=== PATIENT | male | born 1950 | race Caucasian/White ===

== ENCOUNTER 2022-07-15 10:43 | Emergency (ER) | payer MEDICARE, OTHER ==
[2022-07-15 12:01] LABS: Basophils # (A) 0.1 k/uL (0-0.2); Basophils % (A) 1 %; Eosinophils # (A) 0.6 k/uL (0-0.7); Eosinophils % (A) 5 %; HCT 37.5 % (39.0-53.0); HGB 12.4 gm/dL (13.0-17.5); Lymphocytes # (A) 0.9 k/uL (1.0-4.8); Lymphocytes % (A) 7 %; MCH 29.8 pg (25.0-35.0); MCV 90.1 fL (80.0-100.0); Mean Platelet Volume 7.6; Monocytes # (A) 0.5 k/uL (0-1.0); Monocytes % (A) 4 %; Neutrophils % (A) 81 %; Platelet Count 325 k/uL (150-450); RBC 4.16 m/uL (4.30-5.90); RDW 13.2 % (11.5-15.5); WBC 12.3 k/uL (3.8-10.6)
[2022-07-15 12:19] LABS: ALT 25 U/L (4-49); AST 40 U/L (17-59); African American GFR (CKD) >90 (>60 ml/min/1.73 sqM); Albumin 4.3 g/dL (3.5-5.0); Alkaline Phosphatase 110 U/L (38-126); Anion Gap 9 mmol/L; Blood Urea Nitrogen 24 mg/dL (9-20); Calcium 9.1 mg/dL (8.4-10.2); Carbon Dioxide 25 mmol/L (22-30); Chloride 105 mmol/L (98-107); Glucose 118 mg/dL (74-99); Non-African American GFR(CKD) 83 (>60 ml/min/1.73 sqM); Potassium 4.3 mmol/L (3.5-5.1); Sodium 139 mmol/L (137-145); Total Bilirubin 0.7 mg/dL (0.2-1.3); Total Protein 8.6 g/dL (6.3-8.2)
--- NOTE | 2022-07-15 12:25 | ED ---
General Adult HPI - General Source: patient, EMS, RN notes reviewed Mode of arrival: EMS Limitations: no limitations <Elfego Vera - Last Filed: 07/15/22 12:24> <Zechariah Cage - Last Filed: 07/16/22 02:56> - General Chief complaint: Psychiatric Symptoms Stated complaint: Psych Eval Time Seen by Provider: 07/15/22 11:01 - History of Present Illness Initial comments: 71-year-old male presents emergency arm and with police for a psychiatric evaluation. Patient was found out wandering and looked very disheveled, unkempt. Patient states he does live at home by himself he states that he was just wandering and was lost. Patient is awake alert and orientated. Patient denies physical complaints states months ago he had some dysuria but that resolved. States takes multivitamin medications denies any other prescription medications. (Elfego Vera) Review of Systems ROS Other: All systems not noted in ROS Statement are negative. <Elfego Vera - Last Filed: 07/15/22 12:24> ROS Other: All systems not noted in ROS Statement are negative. <Zechariah Cage - Last Filed: 07/16/22 02:56> ROS Statement: Those systems with pertinent positive or pertinent negative responses have been documented in the HPI. Past Medical History Past Medical History: Unable to Obtain History of Any Multi-Drug Resistant Organisms: Unobtainable Past Surgical History: Unable to Obtain Past Psychological History: Unable to Obtain Smoking Status: Unknown if ever smoked Past Alcohol Use History: Unable to Obtain Past Drug Use History: Unable to Obtain <Elfego Vera - Last Filed: 07/15/22 12:24> General Exam Limitations: no limitations General appearance: alert, in no apparent distress Head exam: Present: atraumatic, normocephalic, normal inspection Eye exam: Present: normal appearance, PERRL, EOMI. Absent: scleral icterus, conjunctival injection, periorbital swelling ENT exam: Present: normal exam, mucous membranes moist Neck exam: Present: normal inspection, full ROM. Absent: tenderness, meningismus, lymphadenopathy Respiratory exam: Present: normal lung sounds bilaterally. Absent: respiratory distress, wheezes, rales, rhonchi, stridor Cardiovascular Exam: Present: regular rate, normal rhythm, normal heart sounds. Absent: systolic murmur, diastolic murmur, rubs, gallop, clicks GI/Abdominal exam: Present: soft, normal bowel sounds. Absent: distended, tenderness, guarding, rebound, rigid Neurological exam: Present: alert, oriented X3 <Elfego Vera - Last Filed: 07/15/22 12:24> General appearance: alert, in no apparent distress Head exam: Present: atraumatic, normocephalic, normal inspection Eye exam: Present: normal appearance, PERRL, EOMI. Absent: scleral icterus, conjunctival injection, periorbital swelling ENT exam: Present: normal exam, mucous membranes moist Neck exam: Present: normal inspection. Absent: tenderness, meningismus, lymphadenopathy Respiratory exam: Present: normal lung sounds bilaterally. Absent: respiratory distress, wheezes, rales, rhonchi, stridor Cardiovascular Exam: Present: regular rate, normal rhythm, normal heart sounds. Absent: systolic murmur, diastolic murmur, rubs, gallop, clicks GI/Abdominal exam: Present: soft, normal bowel sounds. Absent: distended, tenderness, guarding, rebound, rigid Extremities exam: Present: normal inspection, full ROM, normal capillary refill. Absent: tenderness, pedal edema, joint swelling, calf tenderness Back exam: Present: normal inspection Neurological exam: Present: alert, oriented X3, CN II-XII intact Psychiatric exam: Present: normal affect, normal mood Skin exam: Present: warm, dry, intact, normal color. Absent: rash <Zechariah Cage - Last Filed: 07/16/22 02:56> Course <Zechariah Cage - Last Filed: 07/16/22 02:56> Vital Signs 07/15/22 11:26 Temperature 97.6 F Pulse Rate 83 Respiratory 18 Rate Blood Pressure 150/92 O2 Sat by Pulse 100 Oximetry - Reevaluation(s) Reevaluation #1: 07/16/22 02:00 Medical record is reviewed Medical clear for psychiatric evaluation (Zechariah Cage) Medical Decision Making - Lab Data Result diagrams: 07/15/22 11:42 07/15/22 11:42 <Elfego Vera - Last Filed: 07/15/22 12:24> - Lab Data Result diagrams: 07/15/22 11:42 07/15/22 11:42 <Zechariah Cage - Last Filed: 07/16/22 02:56> - Medical Decision Making 71 male to be admitted for psychiatric evaluation. Seen and evaluated here in the ER no organic cause found for symptoms (Zechariah Cage) - Lab Data Lab Results 07/15/22 07/15/22 07/15/22 Range/Units 11:42 11:42 11:42 WBC 12.3 H (3.8-10.6) k/uL RBC 4.16 L (4.30-5.90) m/uL Hgb 12.4 L (13.0-17.5) gm/dL Hct 37.5 L (39.0-53.0) % MCV 90.1 (80.0-100.0) fL MCH 29.8 (25.0-35.0) pg MCHC 33.0 (31.0-37.0) g/dL RDW 13.2 (11.5-15.5) % Plt Count 325 (150-450) k/uL MPV 7.6 Neutrophils % 81 % Lymphocytes % 7 % Monocytes % 4 % Eosinophils % 5 % Basophils % 1 % Neutrophils # 10.0 H (1.3-7.7) k/uL Lymphocytes # 0.9 L (1.0-4.8) k/uL Monocytes # 0.5 (0-1.0) k/uL Eosinophils # 0.6 (0-0.7) k/uL Basophils # 0.1 (0-0.2) k/uL Sodium 139 (137-145) mmol/L Potassium 4.3 (3.5-5.1) mmol/L Chloride 105 (98-107) mmol/L Carbon Dioxide 25 (22-30) mmol/L Anion Gap 9 mmol/L BUN 24 H (9-20) mg/dL Creatinine 0.93 (0.66-1.25) mg/dL Est GFR (CKD-EPI)AfAm >90 (>60 ml/min/1.73 sqM) Est GFR (CKD-EPI)NonAf 83 (>60 ml/min/1.73 sqM) Glucose 118 H (74-99) mg/dL Calcium 9.1 (8.4-10.2) mg/dL Total Bilirubin 0.7 (0.2-1.3) mg/dL AST 40 (17-59) U/L ALT 25 (4-49) U/L Alkaline Phosphatase 110 (38-126) U/L Total Protein 8.6 H (6.3-8.2) g/dL Albumin 4.3 (3.5-5.0) g/dL Urine Color Urine Appearance (Clear) Urine pH (5.0-8.0) Ur Specific [place] (1.001-1.035) Urine Protein (Negative) Urine Glucose (UA) (Negative) Urine Ketones (Negative) Urine Blood (Negative) Urine Nitrite (Negative) Urine Bilirubin (Negative) Urine Urobilinogen (<2.0) mg/dL Ur Leukocyte Esterase (Negative) Urine RBC (0-5) /hpf Urine WBC (0-5) /hpf Urine Mucus (None) /hpf Urine Opiates Screen Not Detected (NotDetected) Ur Oxycodone Screen Not Detected (NotDetected) Urine Methadone Screen Not Detected (NotDetected) Ur Propoxyphene Screen Not Detected (NotDetected) Ur Barbiturates Screen Not Detected (NotDetected) U Tricyclic Antidepress Not Detected (NotDetected) Ur Phencyclidine Scrn Not Detected (NotDetected) Ur Amphetamines Screen Not Detected (NotDetected) U Methamphetamines Scrn Not Detected (NotDetected) U Benzodiazepines Scrn Detected H (NotDetected) Urine Cocaine Screen Not Detected (NotDetected) U Marijuana (THC) Screen Not Detected (NotDetected) Coronavirus (PCR) (Not Detectd) 07/15/22 07/15/22 Range/Units 11:42 12:51 WBC (3.8-10.6) k/uL RBC (4.30-5.90) m/uL Hgb (13.0-17.5) gm/dL Hct (39.0-53.0) % MCV (80.0-100.0) fL MCH (25.0-35.0) pg MCHC (31.0-37.0) g/dL RDW (11.5-15.5) % Plt Count (150-450) k/uL MPV Neutrophils % % Lymphocytes % % Monocytes % % Eosinophils % % Basophils % % Neutrophils # (1.3-7.7) k/uL Lymphocytes # (1.0-4.8) k/uL Monocytes # (0-1.0) k/uL Eosinophils # (0-0.7) k/uL Basophils # (0-0.2) k/uL Sodium (137-145) mmol/L Potassium (3.5-5.1) mmol/L Chloride (98-107) mmol/L Carbon Dioxide (22-30) mmol/L Anion Gap mmol/L BUN (9-20) mg/dL Creatinine (0.66-1.25) mg/dL Est GFR (CKD-EPI)AfAm (>60 ml/min/1.73 sqM) Est GFR (CKD-EPI)NonAf (>60 ml/min/1.73 sqM) Glucose (74-99) mg/dL Calcium (8.4-10.2) mg/dL Total Bilirubin (0.2-1.3) mg/dL AST (17-59) U/L ALT (4-49) U/L Alkaline Phosphatase (38-126) U/L Total Protein (6.3-8.2) g/dL Albumin (3.5-5.0) g/dL Urine Color Yellow Urine Appearance Clear (Clear) Urine pH 5.5 (5.0-8.0) Ur Specific [place] 1.031 (1.001-1.035) Urine Protein 1+ H (Negative) Urine Glucose (UA) Negative (Negative) Urine Ketones Negative (Negative) Urine Blood Small H (Negative) Urine Nitrite Negative (Negative) Urine Bilirubin Negative (Negative) Urine Urobilinogen 2.0 (<2.0) mg/dL Ur Leukocyte Esterase Negative (Negative) Urine RBC 6 H (0-5) /hpf Urine WBC 1 (0-5) /hpf Urine Mucus Few H (None) /hpf Urine Opiates Screen (NotDetected) Ur Oxycodone Screen (NotDetected) Urine Methadone Screen (NotDetected) Ur Propoxyphene Screen (NotDetected) Ur Barbiturates Screen (NotDetected) U Tricyclic Antidepress (NotDetected) Ur Phencyclidine Scrn (NotDetected) Ur Amphetamines Screen (NotDetected) U Methamphetamines Scrn (NotDetected) U Benzodiazepines Scrn (NotDetected) Urine Cocaine Screen (NotDetected) U Marijuana (THC) Screen (NotDetected) Coronavirus (PCR) Not Detected (Not Detectd) Disposition <Elfego Vera - Last Filed: 07/15/22 12:24> Is patient prescribed a controlled substance at d/c from ED?: No <Zechariah Cage - Last Filed: 07/16/22 02:56> Clinical Impression: Acute psychosis Disposition: TRANSFER TO PSYCH HOSP/UNIT Condition: Fair Referrals: None,Stated [REFERRING] - 1-2 days
[2022-07-15 13:05] VITALS: RESP 18
[2022-07-15 13:52] LABS: Appearance,Urine Clear (Clear); Bilirubin,Urine Negative (Negative); Blood,Urine Small (Negative); Color,Urine Yellow; Glucose,Urine (UA) Negative (Negative); Ketones,Urine Negative (Negative); Leukocyte Esterase,Urine Negative (Negative); Mucus,Urine Few /hpf; Nitrite,Urine Negative (Negative); PH, Urine 5.5 (5.0-8.0); Protein,Urine 1+ (Negative); RBC,Urine 6 /hpf (0-5); Specific Gravity,Urine 1.031 (1.001-1.035); WBC,Urine 1 /hpf (0-5)
[2022-07-15 13:58] LABS: Amphetamine Screen,Urine Not Detected (NotDetected); Barbiturate Screen,Urine Not Detected (NotDetected); Benzodiazepines Screen,Urine Detected (NotDetected); Cocaine Screen,Urine Not Detected (NotDetected); Methadone Screen, Urine Not Detected (NotDetected); Opiate Screen,Urine Not Detected (NotDetected); Oxycodone Screen, Urine Not Detected (NotDetected); Phencyclidine Screen,Urine Not Detected (NotDetected); Tricyclic Antidepressant,Urine Not Detected (NotDetected); Urn Cannabinoid Scrn Not Detected (NotDetected)
[2022-07-15] MEDS ORDERED: DOCUSATE 100 MG CAP PO PRN (19:10)
[2022-07-16 09:54] VITALS: BP 154/87; PULSE 82; TEMP 98
== END 2022-07-16 09:56 ==
LOC: EC 10:43
DX: F29 Unspecified psychosis not due to a substance or known physiological condition (principal); Z20.822 Contact with and (suspected) exposure to COVID-19
CPT/HCPCS: 36415; 80053; 80306; 81001; 82075; 85025; 87635; 99285

== ENCOUNTER 2022-11-13 19:11 | Inpatient (IN) | payer MEDICARE, OTHER ==
--- NOTE | 2022-11-13 19:41 | ED ---
Psych HPI - General Source: patient, police, RN notes reviewed, old records reviewed <Ruben Vargas - Last Filed: 11/13/22 20:50> <Iker Landeros - Last Filed: 11/14/22 05:32> - General Stated Complaint: Mental Health Time Seen by Provider: 11/13/22 19:13 - History of Present Illness Initial Comments: 72-year-old male with a history of psychiatric disorder likely also dementia who does live alone in an apartment who was seen by police on a well person check found to be very disheveled confused as to where he was here. He was lost in his own apartment a kitchen he was very disheveled did demonstrate body odor and the odor of urine on his clothing. He appeared to demonstrate poor hygiene. He admitted he had not been eating or drinking very well. 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 He has not been taking his medication for at least a month. No reports of any trauma he denies any fevers chills or sweats he does appear to be oriented at times and later confused. He is not able to take care of his ADLs reports also of some hallucinations. (Ruben Vargas) - Related Data Home Medications Medication Instructions Recorded Confirmed Multivitamins, Thera [Multivitamin 1 tab PO DAILY 07/15/22 11/13/22 (formulary)] ARIPiprazole [Abilify] 10 mg PO DIRECTED 11/13/22 11/13/22 Allergies Allergy/AdvReac Type Severity Reaction Status Date / Time No Known Allergies Allergy Verified 11/13/22 20:42 Review of Systems ROS Other: All systems not noted in ROS Statement are negative. <Ruben Vargas - Last Filed: 11/13/22 20:50> ROS Other: All systems not noted in ROS Statement are negative. <Iker Landeros - Last Filed: 11/14/22 05:32> ROS Statement: Those systems with pertinent positive or pertinent negative responses have been documented in the HPI. Past Medical History Past Medical History: Unable to Obtain History of Any Multi-Drug Resistant Organisms: Unobtainable Past Surgical History: Unable to Obtain Past Psychological History: Unable to Obtain Smoking Status: Unknown if ever smoked Past Alcohol Use History: Unable to Obtain Past Drug Use History: Unable to Obtain <Ruben Vargas - Last Filed: 11/13/22 20:50> General Exam General appearance: alert Head exam: Present: atraumatic, normocephalic, normal inspection Eye exam: Present: normal appearance, PERRL, EOMI. Absent: scleral icterus, conjunctival injection, periorbital swelling ENT exam: Present: mucous membranes dry Neck exam: Present: normal inspection, full ROM, other (No stridor JVD or bruits). Absent: tenderness, meningismus, lymphadenopathy Respiratory exam: Present: normal lung sounds bilaterally. Absent: respiratory distress, wheezes, rales, rhonchi, stridor Cardiovascular Exam: Present: regular rate, normal rhythm, normal heart sounds. Absent: systolic murmur, diastolic murmur, rubs, gallop, clicks GI/Abdominal exam: Present: soft, normal bowel sounds. Absent: distended, tenderness, guarding, rebound, rigid Extremities exam: Present: normal inspection, full ROM, normal capillary refill. Absent: tenderness, pedal edema, joint swelling, calf tenderness Back exam: Present: normal inspection Neurological exam: Present: alert, oriented X3, CN II-XII intact Psychiatric exam: Present: normal mood, flat affect Skin exam: Present: warm, dry, intact, normal color. Absent: rash <Ruben Vargas - Last Filed: 11/13/22 20:50> - General Exam Comments Initial Comments: This a well-developed frail appearing male who is awake and alert and does appear to be oriented on my contact he does demonstrate the odor of urine and possibly fecal matter in his clothing I did also observed a couple small insects crawling on his clothing. (Ruben Vargas) Course <Ruben Vargas - Last Filed: 11/13/22 20:50> Vital Signs 11/13/22 11/14/22 22:39 02:42 Temperature 97.9 F Respiratory 78 H 16 Rate Blood Pressure 153/87 O2 Sat by Pulse 98 Oximetry - Reevaluation(s) Reevaluation #1: 11/13/22 20:51 Patient will be endorsed to Dr. Landeros at her shift change pending medical workup and EPS evaluation. He was found to be infested with maggots as well as bedbugs 11/13/22 20:52 Current diagnoses pillar to thrive, schizophrenia, to a psychiatric evaluation (Ruben Vargas) Medical Decision Making - Lab Data Result diagrams: 11/13/22 22:52 11/13/22 22:52 <Iker Landeros - Last Filed: 11/14/22 05:32> - Medical Decision Making The patient was signed out to me from Dr. Vargas. Please see the above for initial HPI as he spoke with the patient initially and got the history of presenting illness. I evaluated the patient and the patient was made medically cleared for EPS evaluation. EPS to evaluate the patient and had concerns for the patient taking care of himself and instead suggested to have the patient admitted medically for placement. The patient continued to remain stable after having an extensive decontamination for bedbugs and roaches. The patient was told of this plan and was agreeable. Dr. Mims was contacted and did accept the patient for admission. The patient was admitted in stable condition for placement. (Iker Landeros) - Lab Data Lab Results 11/13/22 11/13/22 11/13/22 Range/Units 22:52 22:52 22:52 WBC 7.1 (3.8-10.6) k/uL RBC 4.34 (4.30-5.90) m/uL Hgb 12.3 L (13.0-17.5) gm/dL Hct 37.9 L (39.0-53.0) % MCV 87.2 (80.0-100.0) fL MCH 28.4 (25.0-35.0) pg MCHC 32.6 (31.0-37.0) g/dL RDW 13.7 (11.5-15.5) % Plt Count 263 (150-450) k/uL MPV 7.3 Neutrophils % 65 % Lymphocytes % 20 % Monocytes % 5 % Eosinophils % 7 % Basophils % 1 % Neutrophils # 4.6 (1.3-7.7) k/uL Lymphocytes # 1.4 (1.0-4.8) k/uL Monocytes # 0.4 (0-1.0) k/uL Eosinophils # 0.5 (0-0.7) k/uL Basophils # 0.0 (0-0.2) k/uL Sodium 140 (137-145) mmol/L Potassium 3.5 (3.5-5.1) mmol/L Chloride 102 (98-107) mmol/L Carbon Dioxide 30 (22-30) mmol/L Anion Gap 8 mmol/L BUN 19 (9-20) mg/dL Creatinine 0.61 L (0.66-1.25) mg/dL Est GFR (CKD-EPI)AfAm >90 (>60 ml/min/1.73 sqM) Est GFR (CKD-EPI)NonAf >90 (>60 ml/min/1.73 sqM) Glucose 164 H (74-99) mg/dL Calcium 8.7 (8.4-10.2) mg/dL Magnesium 2.4 H (1.6-2.3) mg/dL Total Bilirubin 0.5 (0.2-1.3) mg/dL AST 35 (17-59) U/L ALT 26 (4-49) U/L Alkaline Phosphatase 86 (38-126) U/L Ammonia <9 (<30) umol/L Creatine Kinase 407 H (55-170) U/L Troponin I (0.000-0.034) ng/mL Total Protein 7.6 (6.3-8.2) g/dL Albumin 3.9 (3.5-5.0) g/dL Serum Alcohol <10 mg/dL Influenza Type A (PCR) (Not Detectd) Influenza Type B (PCR) (Not Detectd) RSV (PCR) (Not Detectd) SARS-CoV-2 (PCR) (Not Detectd) 11/13/22 11/13/22 Range/Units 22:52 22:52 WBC (3.8-10.6) k/uL RBC (4.30-5.90) m/uL Hgb (13.0-17.5) gm/dL Hct (39.0-53.0) % MCV (80.0-100.0) fL MCH (25.0-35.0) pg MCHC (31.0-37.0) g/dL RDW (11.5-15.5) % Plt Count (150-450) k/uL MPV Neutrophils % % Lymphocytes % % Monocytes % % Eosinophils % % Basophils % % Neutrophils # (1.3-7.7) k/uL Lymphocytes # (1.0-4.8) k/uL Monocytes # (0-1.0) k/uL Eosinophils # (0-0.7) k/uL Basophils # (0-0.2) k/uL Sodium (137-145) mmol/L Potassium (3.5-5.1) mmol/L Chloride (98-107) mmol/L Carbon Dioxide (22-30) mmol/L Anion Gap mmol/L BUN (9-20) mg/dL Creatinine (0.66-1.25) mg/dL Est GFR (CKD-EPI)AfAm (>60 ml/min/1.73 sqM) Est GFR (CKD-EPI)NonAf (>60 ml/min/1.73 sqM) Glucose (74-99) mg/dL Calcium (8.4-10.2) mg/dL Magnesium (1.6-2.3) mg/dL Total Bilirubin (0.2-1.3) mg/dL AST (17-59) U/L ALT (4-49) U/L Alkaline Phosphatase (38-126) U/L Ammonia (<30) umol/L Creatine Kinase (55-170) U/L Troponin I <0.012 (0.000-0.034) ng/mL Total Protein (6.3-8.2) g/dL Albumin (3.5-5.0) g/dL Serum Alcohol mg/dL Influenza Type A (PCR) Not Detected (Not Detectd) Influenza Type B (PCR) Not Detected (Not Detectd) RSV (PCR) Not Detected (Not Detectd) SARS-CoV-2 (PCR) Not Detected (Not Detectd) Disposition <Rubne Vargas - Last Filed: 11/13/22 20:50> Is patient prescribed a controlled substance at d/c from ED?: No Time of Disposition: 05:30 Decision to Admit Reason: Admit from EC Decision Date: 11/14/22 Decision Time: 05:30 <Iker Landeros - Last Filed: 11/14/22 05:32> Clinical Impression: Failure to thrive Disposition: ADMITTED IP TO THIS HOSP Condition: Stable Referrals: Carlton Mims MD [Primary Care Provider] - 1-2 days
[2022-11-13 23:12] LABS: Basophils % (A) 1 %; Eosinophils # (A) 0.5 k/uL (0-0.7); Eosinophils % (A) 7 %; HCT 37.9 % (39.0-53.0); HGB 12.3 gm/dL (13.0-17.5); Lymphocytes # (A) 1.4 k/uL (1.0-4.8); Lymphocytes % (A) 20 %; MCH 28.4 pg (25.0-35.0); MCHC 32.6 g/dL (31.0-37.0); MCV 87.2 fL (80.0-100.0); Mean Platelet Volume 7.3; Monocytes # (A) 0.4 k/uL (0-1.0); Monocytes % (A) 5 %; Neutrophils # (A) 4.6 k/uL (1.3-7.7); Neutrophils % (A) 65 %; Platelet Count 263 k/uL (150-450); RBC 4.34 m/uL (4.30-5.90); RDW 13.7 % (11.5-15.5); WBC 7.1 k/uL (3.8-10.6)
[2022-11-13 23:25] LABS: ALT 26 U/L (4-49); AST 35 U/L (17-59); African American GFR (CKD) >90 (>60 ml/min/1.73 sqM); Albumin 3.9 g/dL (3.5-5.0); Alcohol <10 mg/dL; Alkaline Phosphatase 86 U/L (38-126); Anion Gap 8 mmol/L; Blood Urea Nitrogen 19 mg/dL (9-20); Calcium 8.7 mg/dL (8.4-10.2); Carbon Dioxide 30 mmol/L (22-30); Chloride 102 mmol/L (98-107); Creatine Kinase 407 U/L (55-170); Glucose 164 mg/dL (74-99); Magnesium 2.4 mg/dL (1.6-2.3); Non-African American GFR(CKD) >90 (>60 ml/min/1.73 sqM); Potassium 3.5 mmol/L (3.5-5.1); Sodium 140 mmol/L (137-145); Total Bilirubin 0.5 mg/dL (0.2-1.3); Total Protein 7.6 g/dL (6.3-8.2)
--- NOTE | 2022-11-14 00:13 | XR ---
ADDENDUM - Added by Maurisio Noonan M.D. on 11/14/2022 12:26 AM (-07:00) CT head was incorrectly reported on the initial chest x-ray report. EXAM: XR Chest, 1 View CLINICAL HISTORY: [email or web address] XR Reason: Confusion TECHNIQUE: Frontal view of the chest. COMPARISON: No relevant prior studies available. FINDINGS: Lungs: Unremarkable. No consolidation. Pleural space: Unremarkable. No pneumothorax. No pleural effusions. Heart: No cardiomegaly.. Mediastinum: Rotated film but otherwise unremarkable. Bones/joints: No acute osseous abnormalities. IMPRESSION: No acute cardiopulmonary disease. EXAM: XR Chest, 1 View CLINICAL HISTORY: ITS.[email or web address] XR Reason: Confusion TECHNIQUE: Frontal view of the chest. COMPARISON: No relevant prior studies available. FINDINGS: Lungs: Unremarkable. No consolidation. Pleural space: Unremarkable. No pneumothorax. No pleural effusions. Heart: Mild to moderate periventricular white matter changes, likely related to microangiopathy. Mediastinum: Unremarkable. Bones/joints: No acute osseous abnormalities. Other findings: Mild mucosal thickening of the left maxillary sinus. Minimal mucosal thickening of the left frontal sinus and right ethmoid air cells. IMPRESSION: Mild to moderate periventricular white matter changes, likely related to microangiopathy.
--- NOTE | 2022-11-14 00:25 | CT ---
EXAM: CT Head Without Intravenous Contrast CLINICAL HISTORY: [email or web address].[email or web address] CT Reason: Altered mental status TECHNIQUE: Axial computed tomography images of the head/brain without intravenous contrast. CTDI is 47 mGy and DLP is 1224.4 mGy-cm. This CT exam was performed using one or more of the following dose reduction techniques: automated exposure control, adjustment of the mA and/or kV according to patient size, and/or use of iterative reconstruction technique. COMPARISON: No relevant prior studies available. FINDINGS: Brain: Mild to moderate periventricular white matter changes, likely related to microangiopathy. No hemorrhage. Ventricles: Unremarkable. No ventriculomegaly. Bones/joints: Unremarkable. No acute fracture. Soft tissues: Unremarkable. Sinuses: Mild mucosal thickening of the left maxillary sinus. Minimal mucosal thickening of the left frontal sinus and right of the anterior ethmoid air cells. Mastoid air cells: Unremarkable as visualized. No mastoid effusion. IMPRESSION: Mild to moderate periventricular white matter changes, likely related to microangiopathy.
[2022-11-14] MEDS ORDERED: NALOXONE 0.4 MG/ML 1 ML VIAL IV PRN (05:29)
[2022-11-14] MEDS ORDERED: ACETAMINOPHEN TAB 325 MG TAB PO PRN (09:16)
[2022-11-14] MEDS ORDERED: DEXTROSE 50% SYRINGE 50 ML IVP PRN ×2 (14:02)
[2022-11-14] MEDS ORDERED: PERMETHRIN 5% CREAM 60 GM TUBE TOPICAL ONE (14:05)
--- NOTE | 2022-11-14 14:30 | P.HPIM ---
History of Present Illness H&P Date: 11/14/22 This is a 72 year old male with unknown medical history although patient reports he saw Dr. Mims in the medical office a few months ago. Patient lives alone, reports he has children and siblings however none live close by and he occasionally speaks to them. There was a well check performed by the police and patient was found to be disheveled and confused. Patients clothing was soiled with urine and fecal matter, additionally there was concern he had not been taking his medication. Patient does report he is not taking any medication daily and denying any significant medical history. His mentation is waxing and waning and at the time of assessment he is alert x 3 able to state his name, date of , where he was and the day. He states he does his own cooking and cleaning. The ER note states the patient had admitted to having hallucinations. Noted that patient was evaluated in the [facility] back in July of 2022 for a similar incident of being found wandering and disheveled medical records show he was started on abilify at that time. Brain CT was done showing mild to moderate periventric ular white matter changes, likely related to microangiopathy. Patient has hemoglobin of 12.3, no elevated white count. Electrolytes and kidney function are essentially with in normal limits. Blood glucose is 164 on admission. Creatine kinase is 407. Troponin is negative. Influenza, RSV and Covid are negative. Chest xray is negative. In the EC patient was found to be covered in bed bugs and cockroaches. Nursing notes reveal the patient was covered in estimated thousands of bed bugs, additionally had maggots on the feet when socks were removed. There are no open wounds on feet. The socks were covered in fecal matter. Patient was noted to have an unsteady gait. A urinalysis and drug screen are pending. Patient is noted to have scabbing along the ankle and leg possibly track chang from scabies. Patient will be treated with permethrin prophylactically. Patient will be given hydration and will check an A1C. Denies chest pain, denies shortness of breath, denies nausea/vomiting/diarrhea. Denies hallucinations currently, patient is fatigued and falling asleep frequently during examination. Admitted to the hospital for weakness and PT/OT will be consulted patient likely will require ECF placement and social work has also been consulted. REVIEW OF SYSTEMS: CONSTITUTIONAL: No fever, no malaise, reports fatigue HEENT: No recent visual problems or hearing problems. Denied any sore throat. CARDIOVASCULAR: No chest pain, orthopnea, PND, no palpitations, no syncope. PULMONARY: No shortness of breath, no cough, no hemoptysis. GASTROINTESTINAL: No diarrhea, no nausea, no vomiting, no abdominal pain. NEUROLOGICAL: No headaches, no weakness, no numbness. HEMATOLOGICAL: Denies any bleeding or petechiae. GENITOURINARY: Denies any burning micturition, frequency, or urgency. MUSCULOSKELETAL/RHEUMATOLOGICAL: Denies any joint pain, swelling, or any muscle pain. ENDOCRINE: Denies any polyuria or polydipsia. The rest of the 14-point review of systems is negative. PHYSICAL EXAMINATION: GENERAL: The patient is alert and oriented x2-3, not in any acute distress. Well developed. Thin built. Fatigued. HEENT: Pupils are round and equally reacting to light. EOMI. No scleral icterus. No conjunctival pallor. Normocephalic, atraumatic. No pharyngeal erythema. No thyromegaly. CARDIOVASCULAR: S1 and S2 present. No murmurs, rubs, or gallops. PULMONARY: Chest is clear to auscultation, no wheezing or crackles. ABDOMEN: Soft, nontender, nondistended, normoactive bowel sounds. No palpable organomegaly. MUSCULOSKELETAL: No joint swelling or deformity. EXTREMITIES: No cyanosis, clubbing, or pedal edema. NEUROLOGICAL: Gross neurological examination did not reveal any focal deficits. Diffused weakness. SKIN: Scabbing along the ankles and legs in a linear pattern. On the left hip there is a reddened area blanchable likely a stage 1 pressure injury. Assessment and plan -Generalized weakness -Altered mental status likely acute delirium patient reports not taking home medications and mentation is waxing and waning. Urinalysis is pending rule out UTI. Urine drug toxicology is also pending. Possible underlying psychiatric disorder patient appears to have been on abilify in the past will request psychiatry consultation -Hyperglycemia rule out underlying diabetes mellitus, hemoglobin A1C is currently pending patient will be started in on accuchecks and sliding scale insulin -Hypertension monitor blood pressure and patient is started on low dose lisinopril -Patient has been deconned and also will be treated with permethrin prophylactically with concern for possible scabies chang on the ankles and legs, this could also be from the numerous bed bugs and cockroaches found on patient -Medical deconditioning patient unable to care for basic hygiene and ADLs social work has been consulted as well as PT/OT patient may require ECF placement -History of frequent alcohol use per medical record. Serum alcohol level negative on admission -Stage 1 pressure injury left hip. GI prophylaxis DVT prophylaxis Full Code Plan Psychiatry consultation Check urinalysis, urine drug toxicology A1C pending PT/OT and social work consultation Ensure TID with meals The impression and plan of care has been dictated by Rebeca Espinosa Nurse Practitioner as directed. Dr. Rin MD I have performed a history and physical examination and medical decision making of this patient, discussed the same with the dictator, and agree with the dictators assessment and plan as written, documented as a scribe. Based on total visit time, I have performed more than 50% of this visit. Past Medical History Past Medical History: Unable to Obtain History of Any Multi-Drug Resistant Organisms: Unobtainable Past Surgical History: Unable to Obtain Past Psychological History: Unable to Obtain Smoking Status: Unknown if ever smoked Past Alcohol Use History: Unable to Obtain Past Drug Use History: Unable to Obtain Medications and Allergies Home Medications Medication Instructions Recorded Confirmed Type Multivitamins, Thera [Multivitamin 1 tab PO DAILY 07/15/22 11/13/22 History (formulary)] ARIPiprazole [Abilify] 10 mg PO DIRECTED 11/13/22 11/13/22 History Allergies Allergy/AdvReac Type Severity Reaction Status Date / Time No Known Allergies Allergy Verified 11/13/22 20:42 Physical Exam Vitals: Vital Signs Temp Resp BP Pulse Ox 11/14/22 02:42 16 11/13/22 22:39 97.9 F 78 H 153/87 98 Intake and Output 11/13/22 11/14/22 11/14/22 22:59 06:59 14:59 Other: Weight 55.792 kg Results CBC & Chem 7: 11/13/22 22:52 11/13/22 22:52 Labs: Abnormal Lab Results - Last 24 Hours (Table) 11/13/22 11/13/22 Range/Units 22:52 22:52 Hgb 12.3 L (13.0-17.5) gm/dL Hct 37.9 L (39.0-53.0) % Creatinine 0.61 L (0.66-1.25) mg/dL Glucose 164 H (74-99) mg/dL Magnesium 2.4 H (1.6-2.3) mg/dL Creatine Kinase 407 H (55-170) U/L Assessment and Plan Time with Patient: Less than 30
[2022-11-14] MEDS: SODIUM CHLORIDE 0.9% 1,000 ML IV SCH (15:51)
[2022-11-14 15:54] LABS: Appearance,Urine Clear (Clear); Bilirubin,Urine Negative (Negative); Blood,Urine Negative (Negative); Color,Urine Yellow; Glucose,Urine (UA) Negative (Negative); Ketones,Urine Negative (Negative); Leukocyte Esterase,Urine Negative (Negative); Nitrite,Urine Negative (Negative); PH, Urine 6.5 (5.0-8.0); Protein,Urine Trace (Negative); Specific Gravity,Urine 1.022 (1.001-1.035); Urobilinogen,Urine <2.0 mg/dL (<2.0)
[2022-11-14 15:58] LABS: Glucose,Whole Blood 148 mg/dL (70-110)
[2022-11-14 16:02] LABS: Amphetamine Screen,Urine Not Detected (NotDetected); Barbiturate Screen,Urine Not Detected (NotDetected); Benzodiazepines Screen,Urine Not Detected (NotDetected); Cocaine Screen,Urine Not Detected (NotDetected); Methadone Screen, Urine Not Detected (NotDetected); Opiate Screen,Urine Not Detected (NotDetected); Oxycodone Screen, Urine Not Detected (NotDetected); Phencyclidine Screen,Urine Not Detected (NotDetected); Tricyclic Antidepressant,Urine Not Detected (NotDetected); Urn Cannabinoid Scrn Not Detected (NotDetected)
[2022-11-14] MEDS: INSULIN ASPART (NovoLOG) 100 UNIT/ML VIAL SQ SCH ×2 (18:48→21:07)
[2022-11-14 20:40] LABS: Glucose,Whole Blood 119 mg/dL (70-110)
[2022-11-14] MEDS: HEPARIN SODIUM,PORCINE/PF 5,000 UNIT/0.5 ML SYRINGE SQ SCH (21:12)
[2022-11-15 06:54] LABS: Glucose,Whole Blood 78 mg/dL (70-110)
[2022-11-15] MEDS: INSULIN ASPART (NovoLOG) 100 UNIT/ML VIAL SQ SCH ×4 (07:42→21:06)
[2022-11-15] MEDS: SODIUM CHLORIDE 0.9% 1,000 ML IV SCH (09:20)
[2022-11-15] MEDS: HEPARIN SODIUM,PORCINE/PF 5,000 UNIT/0.5 ML SYRINGE SQ SCH ×2 (09:20→21:04)
[2022-11-15] MEDS: lisinopriL 5 MG TAB PO SCH (09:21)
[2022-11-15] MEDS: MULTIVITAMINS, THERA 1 EACH TAB PO SCH (09:21)
[2022-11-15] MEDS: PANTOPRAZOLE 40 MG TABLET PO SCH (09:21)
[2022-11-15 11:03] LABS: Glucose,Whole Blood 92 mg/dL (70-110)
[2022-11-15 13:51] VITALS: BMI 17.1
[2022-11-15 17:15] LABS: Glucose,Whole Blood 77 mg/dL (70-110)
--- NOTE | 2022-11-15 17:20 | P.PN ---
Subjective Progress Note Date: 11/15/22 Seth Briones, is a 72-year-old male who presented to [facility] emergency room on 11/13/2022, due to mental status changes with confusion, and hallucinations. Patient was evaluated in the emergency room and was admitted to medical floor. History and physical was done by Dr. Newell is now was covering for me over the weekend. On 11/15/2022 patient was seen and examined on the medical floor, he is slightly confused in no apparent distress, is no fever or chills no chest pain no shortness of breath no cough no nausea or vomiting no abdominal pain no diarrhea and no urinary symptoms. At this time patient is stable, neurology consultation and psychiatry consultation were requested in regard to mental status changes, labs and x-ray reports reviewed, continue with current management will follow in am. Objective - Vital Signs Vital signs: Vital Signs Temp 98.6 F 11/15/22 11:15 Pulse 67 11/15/22 11:15 Resp 16 11/15/22 11:15 BP 106/69 11/15/22 11:15 Pulse Ox 95 11/15/22 11:15 FiO2 Intake & Output 11/14/22 11/15/22 11/15/22 18:59 06:59 18:59 Intake Total 120 Output Total 300 Balance 120 -300 Weight 55.792 kg 55.792 kg Intake: Oral 120 Output: Urine 300 Other: Voiding Method Urinal # Voids 2 1 - Exam In general patient is alert and oriented x 3 in no distress HEENT head normocephalic and atraumatic Neck is supple no JVD no goiter no lymphadenopathy no carotid bruit Chest examination is clear to auscultation no crackles no wheezing Cardiac exam reveals regular heart sounds S1 and S2 no gallops no murmurs Abdomen is soft nontender no organomegaly with normal bowel sounds Extremity exam reveals no edema no cyanosis or clubbing Neurological examination reveals no gross focal deficits - Labs CBC & Chem 7: 11/13/22 22:52 11/13/22 22:52 Labs: Abnormal Lab Results - Last 24 Hours (Table) 11/14/22 Range/Units 20:39 POC Glucose (mg/dL) 119 H (70-110) mg/dL Assessment and Plan Plan: -Generalized weakness -Altered mental status likely acute delirium patient reports not taking home medications and mentation is waxing and waning. Urinalysis is pending rule out UTI. Urine drug toxicology is also pending. Possible underlying psychiatric disorder patient appears to have been on abilify in the past will request psychiatry consultation -Hyperglycemia rule out underlying diabetes mellitus, hemoglobin A1C is currently pending patient will be started in on accuchecks and sliding scale insulin -Hypertension monitor blood pressure and patient is started on low dose lisinopril -Patient has been deconned and also will be treated with permethrin prophyl actically with concern for possible scabies chang on the ankles and legs, this could also be from the numerous bed bugs and cockroaches found on patient -Medical deconditioning patient unable to care for basic hygiene and ADLs social work has been consulted as well as PT/OT patient may require ECF placement -History of frequent alcohol use per medical record. Serum alcohol level negative on admission -Stage 1 pressure injury left hip. GI prophylaxis DVT prophylaxis Full Code
--- NOTE | 2022-11-15 17:21 | P.PN ---
Subjective Progress Note Date: 11/15/22 Principal diagnosis: He was seen today for progress note; full psychaitric consultation was unavailable; even though psychiatric note was enterred on the chart Diagnosis: delirium resolved Psychosis NOS : delusion of ultra-sound impinging on his urrinary problem. His functional decline after he stopped his Rx abilify was the factor for his relapse. He was unaware of the chagne. an. CT was unremarable. His MSE : pleaseant full alert oriented. no speech incohrence. He was responding to Rx treatment . No hallucinations. No forgetfulness recently. He later excused himself by stating he was reading [employer] and may have mistaken his delusion. Cog;oreinted insight judgment marginal managemnt: restart on Abilfiy 5 mg . consult med forensic social worker: re; rohith . Collateral ifnromatino from any of his friends. Full dementia work up required pt to be followed by Psychiatry Objective - Vital Signs Vital signs: Vital Signs Temp 98.6 F 11/15/22 11:15 Pulse 67 11/15/22 11:15 Resp 16 11/15/22 11:15 BP 106/69 11/15/22 11:15 Pulse Ox 95 11/15/22 11:15 FiO2 Intake & Output 11/14/22 11/15/22 11/15/22 18:59 06:59 18:59 Intake Total 120 Output Total 300 Balance 120 -300 Weight 55.792 kg 55.792 kg Intake: Oral 120 Output: Urine 300 Other: Voiding Method Urinal # Voids 2 1 - Labs CBC & Chem 7: 11/13/22 22:52 11/13/22 22:52 Labs: Abnormal Lab Results - Last 24 Hours (Table) 11/14/22 Range/Units 20:39 POC Glucose (mg/dL) 119 H (70-110) mg/dL
[2022-11-15] MEDS: ARIPiprazole 2 MG TAB PO SCH (21:04)
[2022-11-16 07:11] LABS: Glucose,Whole Blood 84 mg/dL (70-110)
[2022-11-16] MEDS: INSULIN ASPART (NovoLOG) 100 UNIT/ML VIAL SQ SCH ×4 (07:34→20:21)
[2022-11-16] MEDS: ARIPiprazole 2 MG TAB PO SCH (10:28)
[2022-11-16] MEDS: PANTOPRAZOLE 40 MG TABLET PO SCH (10:28)
[2022-11-16] MEDS: HEPARIN SODIUM,PORCINE/PF 5,000 UNIT/0.5 ML SYRINGE SQ SCH ×3 (10:28→20:57)
[2022-11-16] MEDS: MULTIVITAMINS, THERA 1 EACH TAB PO SCH (10:28)
[2022-11-16] MEDS: lisinopriL 5 MG TAB PO SCH (10:28)
[2022-11-16] MEDS: SODIUM CHLORIDE 0.9% 1,000 ML IV SCH (10:30)
[2022-11-16 11:07] LABS: Glucose,Whole Blood 134 mg/dL (70-110)
[2022-11-16 12:36] LABS: Glucose,Whole Blood 114 mg/dL (70-110)
--- NOTE | 2022-11-16 14:40 | CDI ---
Documentation Clarification Form Date: 11/16/2022 2:24:45 PM From: Colette Burrell RN CCDS Phone: [phone] Admit Date: 11/14/2022 5:29:00 AM Patient Name: Seth Briones Visit Number: [id number] Discharge Date: ATTENTION: The Clinical Documentation Specialists (CDI) and [facility] Coding Staff appreciate your assistance in clarifying documentation. Please respond to the clarification below the line at the bottom and electronically sign. The CDI & [facility] Coding staff will review the response and follow-up if needed. Please note: Queries are made part of the Legal Health Record. If you have any questions, please contact the author of this message via ITS. Dr. Carlton Mims Malnutrition is documented by RD 11/15, Notes. Based on this information and the findings below, is there an additional diagnosis that is clinically appropriate for this patient? History/Risk Factors: 72-year-old male presents to the ED after a well check was made and the patient was found disheveled and confused. Medical history: HTN, Stage 1 pressure ulcer left hip and possible DM. 11/14, H&P. Clinical Indicators: RD Consult Assessment: 11/15 Nutritional Assessment: Malnutrition is suspected. Current BMI: 17.2kg Hgt 5ft 11inch 55.792kg Patient admits he hasnt been eating much. Vegetarian diet. Nutrition intake since admission Good 92481% Physical findings: Underweight, Stage 1 pressure injury left hip. Patient unsure of weight loss. Patient admits he has not been feeding himself, grocery shopping or cooking. Nutritional Diagnosis: Predicted suboptimal energy intake Treatment: Encourage PO solids and liquids. Consistent carbohydrate Dietary Consult: See above Supplements: Ensure Enlive TID Monitor: Daily PO and supplement Intake. Is there an additional diagnosis that is clinically appropriate for this patient? [ x ] Severe Protein-Calorie Malnutrition [ ] Other condition, please specify [ ] Unable to Determine (Template Last Revised: September 2020) MTDD
--- NOTE | 2022-11-16 14:58 | CDI ---
Documentation Clarification Form Date: 11/16/2022 2:41:56 PM From: Colette Burrell RN CCDS Phone: [phone] Admit Date: 11/14/2022 5:29:00 AM Patient Name: Seth Briones Visit Number: [id number] Discharge Date: ATTENTION: The Clinical Documentation Specialists (CDI) and [facility] Coding Staff appreciate your assistance in clarifying documentation. Please respond to the clarification below the line at the bottom and electronically sign. The CDI & [facility] Coding staff will review the response and follow-up if needed. Please note: Queries are made part of the Legal Health Record. If you have any questions, please contact the author of this message via ITS. Dr. Carlton Mims The patients principal diagnosis the diagnosis that was chiefly responsible for the admission - has not been clearly identified and clarification is requested. The patient presented with the following: Hallucinations, Confused, Disheveled, clothing was soiled with urine and fecal matter, Stage 1 pressure injury left hip, hasnt been taking his medication and his mentation is waxing and waning, the patient has chang on the ankles and legs could be from numerous bed bugs and cockroaches found on the patient. 11/14, H&P History/Risk factors: 72-year old male was found after a well check was made disheveled and confused. The patient lives alone. Medical History: HTN Clinical Indicators: Lab findings: 11/13 Wbc 7.1; Bun 19; Cr 0.61; GFR >90 Glucose 164; Magnesium 2.[address] Brain: Mild to moderate periventricular white matter changes, likely related to microangiopathy. Vital Signs: 11/13 B/P 153/87; HR 78; Temp 97.9F Oral; SpO2 98% room air. Psychiatry consult 11/15: His functional decline after he stopped his Rx abilify was the factor of his relapse. He is responding to Rx treatment. Treatment: Abilify 2mg po daily Consults: Psychiatry see above In your professional opinion, can you please clarify which diagnosis, after study, was the reason chiefly responsible for the admission? [ x ] Metabolic Encephalopathy from not taking Abilify. [ ] Other, please specify [ ] Unable to determine (Template Last Revised: September 2020) MTDD
--- NOTE | 2022-11-16 15:29 | P.CN ---
Psychiatric Consult - . Consult date: 11/16/22 Consult:: 11/16/22 14:58 Psychiatric consultation The patient was seen on and 16 November at the request of the Medical team. I have had the opportunity of intervewing the pt reviewing the chart and talking to the nursing staff regarding patient update. He has not formally been invovled in any behavioral health /mental health program triage before . I don't not have any collateral information to corroborate his data; : this is important for elderly suspecrted of Alzheimer dementia or fronto-temporal temporal dementia to rule out confabulation. The patient did not have a GI or related alcohol use history: and hence [facility] alcohol dementia is highly unlikely. I understand he has had complete medical investigation for his episode of wanderfing confusional state : delirium. at the current admisison. He recall how he was brought in by the police who did a well being check . Chief complaint; Infestation in residence HPI: His delirium has laragely resolved when he was seen on November 15 and November 16. He was fully oriented to time place and people . He was sitting in the reclined samanta and was grateful to the staff for helping him to ambulate and to assist him in dressing. He indicated that he has a urinary incotinence problem : he may have completed the full medical workup. He did not elaborate much on an earlier episode in early 2022 when he found himself wandering around the downtown area of [place]. 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 When asked whether he was aware of his funcitonal decline in navigating around [facility] an is usual ADL, he was unaware of his change. He did not have a regular PCP and has not had any screening check up for quite a no of years. He inicated he approhed the [employer] community action agency in [place] in securing a public guardian for [facility] social security pension checks for bank deposit and for rental payment. He prferred to be on simple diet and was unaware of his basic nutritional needs. He was rated as Malnutrition with BMI 17.2 but he deneid any makred change in his appetitle. He did not have any atypical eating disorder. He did not feel his marginalized nutritional intake: low in Carbohydrate and low protein , was a concern. However, he ratonalized his house infestatin by his attempt to spray the apartment with insecticide with poor result. He ddi not seem to have olfactory loss or deficits which would otherwise agree with neurodegnerative disorder. He was unaware that at time she was even incontinent of urine and feces. I asked him wehther his mobility and socialization has chagned for the past few years. He was totally unaware of the marked change in his ADL: he has few friends. ashleigh an socail support network, he referred to his sister living in [place] . He was unable to locate her address or phone. He hasl has brothers living in [place] and In [facility] [place] with no confirmed address. He has never been and has few social support network otherwsie a few of his neighbors. Family history of dementia is unknown. He endorsed bizzare thought of his living surroundings was controlled by ultraound like the [employer] move. Past medical history: He claimed himself to be realtivley healthy and did not require any medical workup. He did nto care much about his urinary symtpoms nor the change in hi smental status recenlty. Past Psychiatric history: He vaguely remembered he may have seen a psychiiatrist before and maybe alexy has been on antypical antipsychotic; abilify a few yars ago. He did not recall he has had major depressive episode. in the past. MSE: pleasant, he was seen rivera gregg the reclined chair : his speech cohrerent with no expressive or receptive aphasia affect: slightly blunted and indifferent towards the susggestion of relocation [facility] supervised assisted living or fci. his mood was congruent wit his thought content. constricted volodymyr of affect. No perseverqtion no evdience of confabulation . No halllucinations. at the time of admisison he was sreported to be confused ; however, he was fully oriented. No suicidla willy homicidal homicide. orented ; negligent insight and jdugement as showen by his indiference towards house infestation and the dire consequences of his apartment and the idea of health risk and safety. He charmaine corcoran retained the name and facial recognition after the first visit. Diagnosis: Alzheiemr Dementia, with neuropsychiatric symptoms of delusion. ideas of reference regarding bein gcontrolled by outside objects. no hallucinations . No suicidla or homicidla ideaitons. Cog; Fully oriented. insight and judgment were absent. 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 Delirium is superimpsoed on his dementia. r/o fronto-tem[poral dementia. resuls of Vitamin B-12 folate and thurodi status to be confirmed. Management: 1. we will recommend he would benefit from low dosage of atypica;l ;abilify to be titrated to 5 mg po. Assisted living an dlong term placement would benefit him to prevent further decline. He would be a candidate to be started on Anti-AD drugs :aricept, menamtine. 2. Yana mtz communciated with the medical team so that his application and referral to assisted lviing and middle or intermediate school principal care would be expedited. 3. Monitor his response to atypical and realted Drugs like zoloft
--- NOTE | 2022-11-16 15:41 | P.CNNES ---
History of Present Illness Consult date: 11/16/22 Requesting physician: Carlton Mims Reason for Consult: Mental status changes History of Present Illness: Patient is a 72-year-old right-handed male came to the hospital by ambulance on 11/13/2022 at 7:11 PM for altered mental status. Patient tells me that he was having a "shabby lifestyle", and patient states that someone said that he was disoriented and he thought he was seeing ghosts, which he describes as "every d ay people", people walking around inside the building. Patient says that he has been having this problem for last 2-3 years. Patient states that he lives by himself, has no children, never got . Patient admits that his mother in around 80s had developed possible dementia. She used to be in a group home. Patient has never smoked, drinks alcohol very occasionally. Patient was never a heavy drinker, does not do any drugs, marijuana. Denies hypertension or diabetes. Patient says that he sometimes uses a walker, once in a while uses a cane. Sometimes he walks without any device at home. As per EMS flow sheet they were called for paranoid hallucinations. When they arrived, found patient with police department. Patient is an unkept apartment, patient is in urine saturated clothing. Patient showing signs of malnutrition and dehydration. Patient was alert and oriented 4 and answering all questions appropriately however upon further neurological assessment patient was exp eriencing paranoid hallucinations. Patient believes that people are trying to break in to state his furniture and that he has gotten lost in his apartment building and then he asked for help, everyone just stares at him. Patient states that he feels "creeped out" and unsafe. Patient's neighbor states that patient has been hallucinating and refusing to eat for 2 weeks, and last night he started pounding on all his garcia. Patient became agitated when IV access was initiated. Patient's blood pressure was 185/110, pulse rate 79, respirations 18, saturation 99% and blood sugar 113. Vital signs are all blood pressure 150/87, pulse rate 78 and temperature 97.9. Patient has been afebrile. CBC is normal, Chem-20 is normal, ammonia <9, CK slightly elevated 407, troponin negative, UA negative, urine drug screen negative, blood alcohol level negative, influenza screen, RSV and coronal virus PCR negative. CT head revealed mild to moderate periventricular white matter changes, likely related to microangiopathy. I personally reviewed CT head, agree with the findings. No acute process. Chest x-ray revealed no acute cardiopulmonary process. Patient's home medication includes multivitamins and Abilify 10 mg as directed. Review of Systems Once in a while get migraine headache. With migraine he gets nausea vomiting, sleeps it off. He gets migraines once or twice a year. It lasts about 12 hours. Constitutional: Denies chills, Denies fever Eyes: bilateral blurred vision, bilateral loss of peripheral vision (2 years), denies diplopia, denies pain Ears: deny: decreased hearing, ear discharge Ears, nose, mouth and throat: Denies headache, Denies sore throat Cardiovascular: Denies chest pain, Denies shortness of breath Respiratory: Reports cough, Denies excessive sputum Gastrointestinal: Denies abdominal pain, Denies diarrhea, Denies nausea, Denies vomiting Musculoskeletal: Denies low back pain, Denies myalgias, Denies neck pain Integumentary: Reports dryness, Reports pruritus, Reports rash Neurological: Denies numbness, Denies weakness Psychiatric: Reports confusion, Reports hallucinations, Reports paranoia, Denies irritability, Denies memory loss Endocrine: Reports fatigue, Denies weight change Hematologic/Lymphatic: Denies easy bleeding, Denies easy bruising Past Medical History Past Medical History: Unable to Obtain History of Any Multi-Drug Resistant Organisms: Unobtainable Past Surgical History: Unable to Obtain Past Psychological History: Schizophrenia Additional Psychological History / Comment(s): PT STATES "ONCE IN A WHILE WHEN I COME INTO THE HOSPITAL I TAKE ABILITY". PT STATES HE DOENS'T FEEL COMFORTABLE WALKING TO GET MEDICATION AT PHARMACY ONCE HE IS AT HOME. Smoking Status: Never smoker, Unknown if ever smoked Past Alcohol Use History: Unable to Obtain Additional Past Alcohol Use History / Comment(s): PT STATES I DRINK ON AND OFF, SOMETIMES I'LL DRINK FOR A COUPLE MONTHS AND THEN I WON'T DRINK AT ALL FOR A COUPLE MONTHS. HASN'T DRANK ETOH IN THE LAST 2 WEEKS. Past Drug Use History: None Reported Medications and Allergies Home Medications Medication Instructions Recorded Confirmed Type Multivitamins, Thera [Multivitamin 1 tab PO DAILY 07/15/22 11/13/22 History (formulary)] ARIPiprazole [Abilify] 10 mg PO DIRECTED 11/13/22 11/13/22 History Allergies Allergy/AdvReac Type Severity Reaction Status Date / Time No Known Allergies Allergy Verified 11/13/22 20:42 Physical Examination - Vital Signs Vital Signs: Vital Signs Temp Pulse Resp BP Pulse Ox 11/16/22 07:00 97.5 F L 62 17 145/81 100 11/16/22 01:48 98 F 65 16 119/70 95 11/15/22 19:02 98.2 F 72 16 107/68 99 11/15/22 11:15 98.6 F 67 16 106/69 95 Intake and Output 11/15/22 11/16/22 11/16/22 22:59 06:59 14:59 Intake Total 120 Output Total 300 Balance 120 -300 Intake: Oral 120 Output: Urine 300 Other: Voiding Method Urinal # Voids 2 # Bowel Movements 1 Patient is an elderly male, in no acute distress. Patient has a very significant smell of urine on him. Patient is alert awake oriented to time place and person. Patient knows it is 11/16/2022 and that it is spring season and that he is in [facility] in [facility] in [facility]. He knows name of the president "Víctor Brown from [place]". Patient states that [place]. He knows his complete date of and his age correctly. Speech and language functions are normal. Patient can name and repeat very well. No aphasia or dysarthria. Attention, concentration and fund of knowledge is adequate. Patient does have mildly positive visuospatial apraxia, and palmomental reflex. Patient's affect is normal. On cranial nerve examination, pupils are equal, round and possibly minimally reacting to light. Visual morillo revealed left homonymous hemianopia, but also involves the medial half of the lower lateral right visual field. Extraocular muscles are intact with no nystagmus. Face is symmetric, tongue protrudes to the midline. Palatal elevation and sensation normal, hearing and shoulder shrug normal, facial sensation normal. On muscle strength testing, there is no pronator drift and the strength is normal in arms and legs distally and proximally. Deep tendon reflexes are symmetric biceps 1, brachioradialis 1, knees 0, ankles 0 and plantars are flat bilaterally. Sensory to touch is equal with no neglect on double simultaneous stimulation. Cerebellar function showed no ataxia for [id number] testing. No dysdiadochokinesia. No ataxia for [id number] testing on either side. Tone and bulk of muscles normal. Gait deferred.. On general examination, there is no carotid bruit or murmur, S1-S2 audible. Chest is clear on consultation. Abdomen is soft nontender. No organomegaly, bowel sounds present. Peripheral pulses are present. No edema. Results - Laboratory Findings CBC and BMP: 11/13/22 22:52 11/13/22 22:52 Abnormal Lab Findings: Abnormal Labs 11/13/22 11/13/22 11/14/22 22:52 22:52 15:37 Hgb 12.3 L Hct 37.9 L Creatinine 0.61 L Glucose 164 H POC Glucose (mg/dL) Magnesium 2.4 H Creatine Kinase 407 H Urine Protein Trace H 11/14/22 11/14/22 15:46 20:39 Hgb Hct Creatinine Glucose POC Glucose (mg/dL) 148 H 119 H Magnesium Creatine Kinase Urine Protein Assessment and Plan Assessment: * Altered mental status related to visual hallucinations, paranoia, but with normal orientation and sensorium, unclear cause. Probable delirium, rule out early dementia. * Visual field deficit, unclear new or old. Patient has prominent left homonymous hemianopia, but also some involvement of the right lower visual fie ld (medially). Rule out CVA versus ocular cause. * Hypertension Plan: * MRI brain, evaluate for possible CVA (due to visual field deficits). * B12, folate, TSH, RPR, A1c, lipid panel. * Suggest ophthalmology consultation to rule out ocular cause of visual field deficit/hallucinations, rule out Gabino Citlalli syndrome. * Carotid Doppler, rule out carotid stenosis. * Agree with psychiatric consultation. * Neurology will follow. Thank you for the consult.
[2022-11-16 15:56] LABS: Basophils % (A) 1 %; Eosinophils # (A) 0.5 k/uL (0-0.7); Eosinophils % (A) 8 %; HCT 35.8 % (39.0-53.0); HGB 11.5 gm/dL (13.0-17.5); Lymphocytes % (A) 15 %; MCH 28.3 pg (25.0-35.0); MCV 88.6 fL (80.0-100.0); Mean Platelet Volume 8.4; Monocytes # (A) 0.4 k/uL (0-1.0); Monocytes % (A) 6 %; Neutrophils # (A) 4.3 k/uL (1.3-7.7); Neutrophils % (A) 68 %; Platelet Count 289 k/uL (150-450); RBC 4.05 m/uL (4.30-5.90); RDW 13.7 % (11.5-15.5); WBC 6.3 k/uL (3.8-10.6)
[2022-11-16 16:02] LABS: ALT 19 U/L (4-49); AST 21 U/L (17-59); African American GFR (CKD) >90 (>60 ml/min/1.73 sqM); Albumin 3.1 g/dL (3.5-5.0); Alkaline Phosphatase 78 U/L (38-126); Anion Gap 6 mmol/L; Blood Urea Nitrogen 12 mg/dL (9-20); Calcium 8.2 mg/dL (8.4-10.2); Carbon Dioxide 30 mmol/L (22-30); Chloride 101 mmol/L (98-107); Globulin 3.2 g/dL; Glucose 88 mg/dL (74-99); Non-African American GFR(CKD) >90 (>60 ml/min/1.73 sqM); Potassium 4.5 mmol/L (3.5-5.1); Sodium 137 mmol/L (137-145); Total Bilirubin 0.2 mg/dL (0.2-1.3); Total Protein 6.3 g/dL (6.3-8.2)
[2022-11-16 17:17] LABS: Glucose,Whole Blood 117 mg/dL (70-110)
--- NOTE | 2022-11-16 18:32 | US ---
EXAMINATION TYPE: US carotid duplex BILAT DATE OF EXAM: 11/16/2022 COMPARISON: NONE CLINICAL INDICATION: Male, 72 years old with history of Bilateral visual field deficit, r/o carotid s tenos; vision issues TECHNIQUE: Carotid duplex ultrasound examination. Indirect Doppler criteria was utilized. FINDINGS: EXAM MEASUREMENTS: RIGHT: Peak Systolic Velocity (PSV) cm/sec ----- Right CCA: 66.7 ----- Right ICA: 72.6 ----- Right ECA: 119.1 ICA/CCA ratio: 1.1 RIGHT: End Diastole cm/sec ----- Right CCA: 17.3 ----- Right ICA: 15.9 ----- Right ECA: 7.1 LEFT: Peak Systolic Velocity (PSV) cm/sec ----- Left CCA: 72.6 ----- Left ICA: 122.6 ----- Left ECA: 100.0 ICA/CCA ratio: 1.7 LEFT: End Diastole cm/sec ----- Left CCA: 19.7 ----- Left ICA: 45.1 ----- Left ECA: 12.8 VERTEBRALS (direction of flow): Right Vertebral: Antegrade Left Vertebral: Antegrade Rhythm: Normal STEEL [employer]ER NOTES: Plaque seen in left bulb Mild to moderate eccentric plaque left carotid bulb. Velocity measurements and ratios remain within n ormal limits of both internal carotid arteries. IMPRESSION: No hemodynamically significant stenosis in either internal carotid artery. Criteria for Assigning % of Stenosis / Diameter reduction (Estimation based on the indirect measurements of the internal carotid artery velocities (ICA PSV). 1. Normal (no stenosis)=ICA PSV < 125 cm/s: ratio < 2.0: ICA EDV<40 cm/s. 2. Less than 50% stenosis=ICA PSV < 125 cm/s: ratio < 2.0: ICA EDV<40 cm/s. 3. 50 to 69% stenosis=ICA PSV of 125 to 230 cm/s: ration 2.0 ? 4.0: ICA EDV 40-100 cm/s. 4. Greater than 70% stenosis to near occlusion= ICA PSV > 230 cm/s: ratio > 4.0: ICA EDV > 100 cm/s. 5. Near occlusion= ICA PSV velocities may be low or undetectable: variable ratio and ICA EDV. 6. Total occlusion=unable to detect flow.
[2022-11-16 20:23] LABS: Glucose,Whole Blood 100 mg/dL (70-110)
[2022-11-16] MEDS ORDERED: DONEPEZIL 5 MG TAB PO SCH (21:00)
[2022-11-17] MEDS: SODIUM CHLORIDE 0.9% 1,000 ML IV SCH (06:37)
[2022-11-17 07:14] LABS: Glucose,Whole Blood 82 mg/dL (70-110)
[2022-11-17] MEDS: INSULIN ASPART (NovoLOG) 100 UNIT/ML VIAL SQ SCH ×2 (07:49→11:35)
[2022-11-17 08:07] VITALS: RESP 18
[2022-11-17] MEDS: lisinopriL 5 MG TAB PO SCH (08:54)
[2022-11-17] MEDS: ARIPiprazole 2 MG TAB PO SCH (08:54)
[2022-11-17] MEDS: PANTOPRAZOLE 40 MG TABLET PO SCH (08:54)
[2022-11-17] MEDS: MULTIVITAMINS, THERA 1 EACH TAB PO SCH (08:54)
[2022-11-17] MEDS: HEPARIN SODIUM,PORCINE/PF 5,000 UNIT/0.5 ML SYRINGE SQ SCH (08:55)
[2022-11-17 11:19] LABS: Glucose,Whole Blood 113 mg/dL (70-110)
--- NOTE | 2022-11-17 12:37 | P.PN ---
Subjective Progress Note Date: 11/16/22 Seth Briones, is a 72-year-old male who presented to [facility] emergency room on 11/13/2022, due to mental status changes with confusion, and hallucinations. Patient was evaluated in the emergency room and was admitted to medical floor. History and physical was done by Dr. Newell is now was covering for me over the weekend. On 11/15/2022 patient was seen and examined on the medical floor, he is slightly confused in no apparent distress, is no fever or chills no chest pain no shortness of breath no cough no nausea or vomiting no abdominal pain no diarrhea and no urinary symptoms. At this time patient is stable, neurology consultation and psychiatry consultation were requested in regard to mental status changes, labs and x-ray reports reviewed, continue with current management will follow in am. On 11/16/2022 patient remains confused. Scattered services are following. Pat ient waiting for ECF placement Objective - Vital Signs Vital signs: Vital Signs Temp 98.4 F 11/16/22 13:15 Pulse 69 11/16/22 13:15 Resp 18 11/16/22 13:15 BP 121/81 11/16/22 13:15 Pulse Ox 99 11/16/22 13:15 FiO2 Intake & Output 11/15/22 11/16/22 11/16/22 18:59 06:59 18:59 Intake Total 120 Output Total 300 300 Balance -300 -180 Weight 55.792 kg Intake: Oral 120 Output: Urine 300 300 Other: Voiding Method Urinal # Voids 2 # Bowel Movements 1 - Exam In general patient is alert and oriented x 3 in no distress HEENT head normocephalic and atraumatic Neck is supple no JVD no goiter no lymphadenopathy no carotid bruit Chest examination is clear to auscultation no crackles no wheezing Cardiac exam reveals regular heart sounds S1 and S2 no gallops no murmurs Abdomen is soft nontender no organomegaly with normal bowel sounds Extremity exam reveals no edema no cyanosis or clubbing Neurological examination reveals no gross focal deficits - Labs CBC & Chem 7: 11/16/22 15:00 11/16/22 15:00 Labs: Abnormal Lab Results - Last 24 Hours (Table) 11/15/22 11/16/22 11/16/22 Range/Units 20:21 11:02 15:00 RBC (4.30-5.90) m/uL Hgb (13.0-17.5) gm/dL Hct (39.0-53.0) % Creatinine 0.63 L (0.66-1.25) mg/dL POC Glucose (mg/dL) 114 H 134 H (70-110) mg/dL Calcium 8.2 L (8.4-10.2) mg/dL Albumin 3.1 L (3.5-5.0) g/dL 11/16/22 Range/Units 15:00 RBC 4.05 L (4.30-5.90) m/uL Hgb 11.5 L (13.0-17.5) gm/dL Hct 35.8 L (39.0-53.0) % Creatinine (0.66-1.25) mg/dL POC Glucose (mg/dL) (70-110) mg/dL Calcium (8.4-10.2) mg/dL Albumin (3.5-5.0) g/dL Assessment and Plan Plan: -Generalized weakness -Altered mental status likely acute delirium patient reports not taking home medications and mentation is waxing and waning. Urinalysis is pending rule out UTI. Urine drug toxicology is also pending. Possible underlying psychiatric disorder patient appears to have been on abilify in the past will request psychiatry consultation -Hyperglycemia rule out underlying diabetes mellitus, hemoglobin A1C is curr ently pending patient will be started in on accuchecks and sliding scale insulin -Hypertension monitor blood pressure and patient is started on low dose lisinopril -Patient has been deconned and also will be treated with permethrin prophylactically with concern for possible scabies chang on the ankles and legs, this could also be from the numerous bed bugs and cockroaches found on patient -Medical deconditioning patient unable to care for basic hygiene and ADLs social work has been consulted as well as PT/OT patient may require ECF placement -History of frequent alcohol use per medical record. Serum alcohol level negative on admission -Stage 1 pressure injury left hip. GI prophylaxis DVT prophylaxis Full Code
--- NOTE | 2022-11-17 12:39 | P.PN ---
Subjective Progress Note Date: 11/17/22 Seth Briones, is a 72-year-old male who presented to [facility] emergency room on 11/13/2022, due to mental status changes with confusion, and hallucinations. Patient was evaluated in the emergency room and was admitted to medical floor. History and physical was done by Dr. Newell is now was covering for me over the weekend. On 11/15/2022 patient was seen and examined on the medical floor, he is slightly confused in no apparent distress, is no fever or chills no chest pain no shortness of breath no cough no nausea or vomiting no abdominal pain no diarrhea and no urinary symptoms. At this time patient is stable, neurology consultation and psychiatry consultation were requested in regard to mental status changes, labs and x-ray reports reviewed, continue with current management will follow in am. On 11/16/2022 patient remains confused. Scattered services are following. Pat ient waiting for ECF placement On 11/17/2022 patient is alert and oriented with episodes of confusion. Patient was evaluated by psych and neurology services. Carotid Doppler negative. Discussed case with case management attempting to find ECF placement. Temp 97.6 heart rate 74, blood pressure 160/92 with pulse 100% Objective - Vital Signs Vital signs: Vital Signs Temp 97.6 F 11/17/22 07:00 Pulse 74 11/17/22 07:00 Resp 18 11/17/22 07:00 BP 161/92 11/17/22 07:00 Pulse Ox 100 11/17/22 07:00 FiO2 Intake & Output 11/16/22 11/17/22 11/17/22 18:59 06:59 18:59 Intake Total 1200 Output Total 500 750 225 Balance -500 450 -225 Intake: Oral 1200 Output: Urine 500 750 225 Other: Voiding Method Urinal Urinal # Voids 2 1 - Exam In general patient is alert and oriented x 3 in no distress HEENT head normocephalic and atraumatic Neck is supple no JVD no goiter no lymphadenopathy no carotid bruit Chest examination is clear to auscultation no crackles no wheezing Cardiac exam reveals regular heart sounds S1 and S2 no gallops no murmurs Abdomen is soft nontender no organomegaly with normal bowel sounds Extremity exam reveals no edema no cyanosis or clubbing Neurological examination reveals no gross focal deficits - Labs CBC & Chem 7: 11/16/22 15:00 11/16/22 15:00 Labs: Abnormal Lab Results - Last 24 Hours (Table) 11/16/22 11/16/22 11/16/22 Range/Units 15:00 15:00 17:14 RBC 4.05 L (4.30-5.90) m/uL Hgb 11.5 L (13.0-17.5) gm/dL Hct 35.8 L (39.0-53.0) % Creatinine 0.63 L (0.66-1.25) mg/dL POC Glucose (mg/dL) 117 H (70-110) mg/dL Calcium 8.2 L (8.4-10.2) mg/dL Albumin 3.1 L (3.5-5.0) g/dL 11/17/22 Range/Units 11:17 RBC (4.30-5.90) m/uL Hgb (13.0-17.5) gm/dL Hct (39.0-53.0) % Creatinine (0.66-1.25) mg/dL POC Glucose (mg/dL) 113 H (70-110) mg/dL Calcium (8.4-10.2) mg/dL Albumin (3.5-5.0) g/dL Assessment and Plan Plan: -Generalized weakness -Altered mental status likely acute delirium patient reports not taking home medications and mentation is waxing and waning. Urinalysis is pending rule out UTI. Urine drug toxicology is also pending. Possible underlying psychiatric disorder patient appears to have been on abilify in the past will request psychiatry consultation -Hyperglycemia rule out underlying diabetes mellitus, hemoglobin A1C is currently pending patient will be started in on accuchecks and sliding scale insulin -Hypertension monitor blood pressure and patient is started on low dose lisinopril -Patient has been deconned and also will be treated with permethrin p rophylactically with concern for possible scabies chang on the ankles and legs, this could also be from the numerous bed bugs and cockroaches found on patient -Medical deconditioning patient unable to care for basic hygiene and ADLs social work has been consulted as well as PT/OT patient may require ECF placement -History of frequent alcohol use per medical record. Serum alcohol level negative on admission -Stage 1 pressure injury left hip. GI prophylaxis DVT prophylaxis Full Code
[2022-11-17 13:24] VITALS: BP 96/62; PULSE 70; TEMP 98.4
--- NOTE | 2022-11-17 13:50 | P.DS ---
Providers Date of admission: 11/14/22 05:29 Expected date of discharge: 11/17/22 Attending physician: Carlton Mims Consults: 11/14/22 14:24 Consult Physician Routine Consulting Provider: Mahamed Crespo Consult Reason/Comments: psychiatric evaluation/hallucinations, unkept condition and on abilify ? Do you want consulting provider notified?: Yes 11/15/22 17:15 Consult Physician Routine Consulting Provider: Zach Linda Consult Reason/Comments: mental status changes Do you want consulting provider notified?: Yes 11/16/22 15:41 Consult Physician Routine Consulting Provider: Ortega Alvarado Consult Reason/Comments: Visual field deficits, r/o ocular cause, Gabino Citlalli syndrome Do you want consulting provider notified?: Yes Primary care physician: Carlton Mims [facility] Course: discharge diagnosis -Generalized weakness -Altered mental status likely acute delirium patient reports not taking home medications and mentation is waxing and waning. Urinalysis is pending rule out UTI. Urine drug toxicology is also pending. Possible underlying psychiatric disorder patient appears to have been on abilify in the past will request psychiatry consultation -Hyperglycemia rule out underlying diabetes mellitus, hemoglobin A1C is currently pending patient will be started in on accuchecks and sliding scale insulin -Hypertension monitor blood pressure and patient is started on low dose lisinopril -Patient has been deconned and also will be treated with permethrin prophylactically with concern for possible scabies chang on the ankles and legs, this could also be from the numerous bed bugs and cockroaches found on patient -Medical deconditioning patient unable to care for basic hygiene and ADLs social work has been consulted as well as PT/OT patient may require ECF placement -History of frequent alcohol use per medical record. Serum alcohol level negative on admission -Stage 1 pressure injury left hip. Hospital Course Seth Briones, is a 72-year-old male who presented to [facility] emergency room on 11/13/2022, due to mental status changes with confusion, and hallucinations. Patient was evaluated in the emergency room and was admitted to medical floor. History and physical was done by Dr. Newell is now was covering for me over the weekend. On 11/15/2022 patient was seen and examined on the medical floor, he is slightly confused in no apparent distress, is no fever or chills no chest pain no shortness of breath no cough no nausea or vomiting no abdominal pain no diarrhea and no urinary symptoms. At this time patient is stable, neurology consultation and psychiatry consultation were requested in regard to mental status changes, labs and x-ray reports reviewed, continue with current management will follow in am. On 11/16/2022 patient remains confused. Scattered services are following. Patient waiting for ECF placement On 11/17/2022 patient is alert and oriented with episodes of confusion. Patient was evaluated by psych and neurology services. Carotid Doppler negative. Discussed case with case management attempting to find ECF placement. Temp 97.6 heart rate 74, blood pressure 160/92 with pulse 100% Per nursing staff patient refusing MRI neuro aware. medication changes made per psych recommendations. patient to be d/c to [facility]. Patient Condition at Discharge: Stable Plan - Discharge Summary New Discharge Prescriptions: New Pantoprazole [Protonix] 40 mg PO AC-BRKFST tab ARIPiprazole [Abilify] 2 mg PO DAILY tab Donepezil [Aricept] 5 mg PO HS tab lisinopriL [Zestril] 5 mg PO DAILY tab Continue Multivitamins, Thera [Multivitamin (formulary)] 1 tab PO DAILY Discontinued ARIPiprazole [Abilify] 10 mg PO DIRECTED Discharge Medication List Multivitamins, Thera [Multivitamin (formulary)] 1 tab PO DAILY 07/15/22 [History] ARIPiprazole [Abilify] 2 mg PO DAILY tab 11/17/22 [Rx] Donepezil [Aricept] 5 mg PO HS tab 11/17/22 [Rx] Pantoprazole [Protonix] 40 mg PO AC-BRKFST tab 11/17/22 [Rx] lisinopriL [Zestril] 5 mg PO DAILY tab 11/17/22 [Rx] Follow up Appointment(s)/Referral(s): Joaquin Vivas MD [STAFF PHYSICIAN] - 2 Weeks Carlton Mims MD [Primary Care Provider] - 1-2 days Activity/Diet/Wound Care/Special Instructions: Pt's belongings are bagged up and in ER locker Discharge Disposition: TRANSFER TO SNF/ECF
--- NOTE | 2022-11-18 03:01 | CONS ---
CONSULTATION Ophthalmology Consult. CHIEF COMPLAINT: Visual distortions. HISTORY OF PRESENT ILLNESS: The patient is a 72-year-old male who presented to the hospital several days prior with an altered mental status. The patient complains of what he describes as visual hallucinations that began about 3 weeks ago. He describes seeing hologram and ghosts. The symptoms occurred suddenly and continued for several days. The symptoms improved after a week or so. The patient has not had any of the symptoms in the last several days. There are no associated symptoms. The patient has had other thoughts of depression and paranoia. REVIEW OF SYSTEMS: The patient reports he was disoriented. He denies fever, malaise, fatigue, chest pain, orthopnea, palpitations, shortness of breath, diarrhea, vomiting, nausea, headaches. SOCIAL HISTORY: The patient denies drug use. The patient also denies smoking. The patient reports occasional alcohol use. FAMILY HISTORY: The patient denies any ophthalmic family history. MEDICAL HISTORY: The patient reports history of psychiatric disorders including paranoia and depression. MEDICATIONS: The patient is unable to report his home medications. SURGICAL HISTORY: The patient denies any ophthalmic surgical history. FAMILY HISTORY: The patient denies any ophthalmic family history. 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 PHYSICAL EXAMINATION: OPHTHALMIC: Pupils are equal and round and reactive to light and accommodation. Extraocular movements are full. Intraocular pressure is 26 in both eyes. Visual acuity is 2200 without correction at near in both eyes. Confrontation visual morillo reveals constricted visual morillo in both eyes with no clear hemianopsia. Anterior exam reveals nuclear sclerotic changes to the lenses in both eyes. Examination of the posterior pole is limited, however, the retina is flat. ASSESSMENT AND PLAN: 1. Visual hallucinations, both eyes, this is associated with his psychiatric illness including paranoia. The patient needs to continue with psychiatric evaluation. 2. Cataract, visually significant, both eyes. The patient needs to follow up as an outpatient within the next several weeks for evaluation of his cataracts and possible surgical planning if necessary. 3. Glaucoma suspect, both eyes due to the patient's slightly increased intraocular pressure and peripheral vision abnormalities on confrontation visual field, I recommend a more complete glaucoma evaluation to be performed in the office using more standardized testing. The patient will likely benefit from further evaluation and possible treatment if necessary. 4. I have no further recommendations at this time other than the outpatient followup for further examination and evaluation of his chronic visual symptoms. Thank you for allowing me to participate in this patient's care. NELI / APRIL: [phone] /
--- NOTE | 2022-11-18 07:31 | P.PN ---
Subjective Progress Note Date: 11/17/22 Patient was seen for a follow-up. Patient says that he is feeling better, as he had undergone sponge bath today. Patient tells me that if he drinks beer, next day he has blurred vision. He denies any headache. Offers no neurological symptoms. Objective - Vital Signs Vital signs: Vital Signs Temp 97.6 F 11/17/22 07:00 Pulse 74 11/17/22 07:00 Resp 18 11/17/22 07:00 BP 161/92 11/17/22 07:00 Pulse Ox 100 11/17/22 07:00 FiO2 Intake & Output 11/16/22 11/17/22 11/17/22 18:59 06:59 18:59 Intake Total 1200 Output Total 500 750 225 Balance -500 450 -225 Intake: Oral 1200 Output: Urine 500 750 225 Other: Voiding Method Urinal Urinal # Voids 2 1 - Exam Patient is fully alert and awake. He is not hallucinating. Not delusional. His visual morillo have very inconsistent response. Extraocular muscles are intact with no nystagmus. Face is symmetric and tongue protrudes the midline. Speech and language functions are normal. On muscle strength testing there is no pronator drift and the strength is normal in arms and legs distally and proximally. Sensory equal with no neglect. No ataxia for [id number] testing. - Labs CBC & Chem 7: 11/16/22 15:00 11/16/22 15:00 Labs: Abnormal Lab Results - Last 24 Hours (Table) 11/15/22 11/16/22 11/16/22 Range/Units 20:21 11:02 15:00 RBC (4.30-5.90) m/uL Hgb (13.0-17.5) gm/dL Hct (39.0-53.0) % Creatinine 0.63 L (0.66-1.25) mg/dL POC Glucose (mg/dL) 114 H 134 H (70-110) mg/dL Calcium 8.2 L (8.4-10.2) mg/dL Albumin 3.1 L (3.5-5.0) g/dL 11/16/22 11/16/22 Range/Units 15:00 17:14 RBC 4.05 L (4.30-5.90) m/uL Hgb 11.5 L (13.0-17.5) gm/dL Hct 35.8 L (39.0-53.0) % Creatinine (0.66-1.25) mg/dL POC Glucose (mg/dL) 117 H (70-110) mg/dL Calcium (8.4-10.2) mg/dL Albumin (3.5-5.0) g/dL Assessment and Plan Assessment: * Altered mental status related to visual hallucinations, paranoia, but with normal orientation and sensorium, unclear cause. Probable delirium, rule out early dementia. * Visual field deficit, unclear new or old. Patient has prominent left homonymous hemianopia, but also some involvement of the right lower visual field (medially). Rule out CVA versus ocular cause. * Hypertension Plan: * Patient declined MRI of the brain. His symptoms do not like an acute stroke either. * B12 373, folate 23.70, TSH 2.17, RPR nonreactive, A1c 5.9, lipid panel looks like was canceled. ESR 18, CRP < 0.5. No evidence of temporal arteritis. Patient does not have any headache. * Await ophthalmology consultation to rule out ocular cause of visual field deficit/hallucinations, rule out Gabino Citlalli syndrome. * Carotid Doppler revealed no hemodynamically significant stenosis in either ICA. Antegrade flow in both vertebral arteries. * Psychiatry seen the patient, appreciate recommendations. Addendum: Patient was seen by spouter, who believes visual hallucinations likely related to psychiatric illness including paranoia. Patient needs to continue with psychiatric evaluation. Patient has visually significant cataracts and recommended possible surgical planning in the near future. Patient also has glaucoma suspect both eyes. Recommended patient to follow up in the office for further evaluation of glaucoma and patient likely will benefit from further evaluation and possible treatment if necessary. Patient to follow up with spouter as an outpatient. Neurologically clear.
== END 2022-11-17 15:03 | DRG 91 ==
LOC: EC 19:11 → 5NMEDONC 11-14 05:29 → EEVIPCON 11-14 05:29 → 5NMEDONC 11-14 17:11
PROVIDERS: ADMIT Internal Medicine; ATTEND Internal Medicine
DX: G92.8 Other toxic encephalopathy (principal); E43 Unspecified severe protein-calorie malnutrition; Z68.1 Body mass index [BMI] 19.9 or less, adult; F05 Delirium due to known physiological condition; F02.82 Dementia in other diseases classified elsewhere, unspecified severity, with psychotic disturbance; T43.596A Underdosing of other antipsychotics and neuroleptics, initial encounter; Z20.822 Contact with and (suspected) exposure to COVID-19; G30.9 Alzheimer's disease, unspecified; I10 Essential (primary) hypertension; F20.9 Schizophrenia, unspecified; H26.9 Unspecified cataract; H40.9 Unspecified glaucoma; H53.462 Homonymous bilateral field defects, left side; B87.0 Cutaneous myiasis; B88.8 Other specified infestations; R26.81 Unsteadiness on feet; B86 Scabies; R73.9 Hyperglycemia, unspecified; L89.221 Pressure ulcer of left hip, stage 1; I73.9 Peripheral vascular disease, unspecified; Z28.310 Unvaccinated for COVID-19; Z91.148 Patient's other noncompliance with medication regimen for other reason; Z79.899 Other long term (current) drug therapy
CPT/HCPCS: 36415; 70450; 71045; 80053; 80306; 80320; 81003; 82140; 82550; 82607; 82746; 83036; 83735; 84443; 84484; 85025; 85652; 86140; 86780; 87636; 93880; 96360; 96361; 99285